=== PATIENT | male | born 1995 ===

== ENCOUNTER 2016-12-14 08:56 | Emergency (ER) | payer OTHER, BC ==
[~2016-12-14] VITALS: Ht 172.7 cm; Wt 73.3 kg
[2016-12-14 09:02] VITALS: TEMP 36.7; Ht 172.7 cm; Wt 73.3 kg
[2016-12-14] MEDS ORDERED: LIDOCAINE/EPINEPH/TETRACAINE 1 EA SYR EXT STA (09:25)
[2016-12-14] MEDS ORDERED: LIDOCAINE/EPINEPHRINE 1% 20 ML VIAL INFIL ONE (09:30)
[2016-12-14] MEDS ORDERED: AMOX875T PO (09:35)
--- NOTE | 2016-12-14 09:36 | EMERGENCY ROOM VISIT NOTE ---
ED Visit Note First contact with patient: 09:16 CHIEF COMPLAINT: Multiple facial lacerations from dog bites HISTORY OF PRESENT ILLNESS: This 21-year-old male patient presents emergency department via EMS, complaining of multiple lacerations to the face and upper lip. The patient states his roommate's dog had a medicine bottle which she was chewing and playing with, so he reached down to attempt to remove the medicine bottle from the dogs mouth. The dog became agitated and bit the patient's face. The dog is up-to-date on all vaccinations, including rabies. The dog does not have a biting history. There was no loss of consciousness, vomiting, or unusual behavior afterwards. Denies neck pain. No headache, nausea, or blurred vision. There is minimal active bleeding. The patient rates the pain as burning and 5/10. The patient's tetanus shot is up to date. REVIEW OF SYSTEMS: A 6 system review of systems was completed with positives and pertinent negatives listed in the HPI. ALLERGIES: None MEDICATIONS: None PMH: None SOCIAL HISTORY: The patient is a [employer] student. He lives locally with his roommate. The patient denies drug, alcohol, tobacco use. PHYSICAL EXAM: Vital Signs: Reviewed Nurse's notes, vital signs stable. GENERAL : This is a 21-year-old male, in no acute distress, well-developed, well- nourished. NEURO: The patient is alert and oriented to person place and time. No focal neurological defects. EYES: Pupils are round, equal, and react to light. EOMI. EARS: No hemotympanum. NECK: Supple. No cervical spine tenderness. FACE: No facial bone tenderness or mandibular tenderness. The mouth can open fully. The teeth are well aligned. No loose or chipped teeth. SKIN: There are 2 small, approximately 0.5 cm long lacerations of the right side of the upper lip. The lacerations are not through the vermilion border. They are gaping open without traction. The wounds are minimally bleeding. There is no foreign material in the wounds. There is a 3 cm laceration on the right lower cheek. The edges gape apart without traction. There is minimal active bleeding and no foreign material in the wound. There are no deep structures present. There is another smaller, 1 cm long laceration in the center of the chin. The edges gape apart with traction. The edges are irregular from the dog's teeth. There is minimal active bleeding and no foreign material in the wound. There are no deep structures present. Capillary refill less than two seconds. Normal sensation to light and sharp touch. EMERGENCY DEPARTMENT COURSE: I examined the patient. Verbal consent was obtained to perform the procedure. LET gel was applied to the lesions on the chin and cheek. This was allowed to sit for approximately 45 minutes as the lip lacerations were repaired. Using sterile technique the wounds on the lip were cleansed with Betadine. The area was sterilely draped. 1 ml of 1% buffered lidocaine with epinephrine was used to anesthetize each of the lip lacerations. Once the patient was anesthetized, the wound was copiously irrigated under pressure with sterile saline. The wound was explored and was as described above. The laceration in the corner of the lip was repaired using 4 simple interrupted 5-0 Vicryl sutures with the wound edges being well approximated. The laceration closer to the middle of the upper lip was repaired using 3 simple interrupted 5-0 Vicryl sutures with the wound edges being well approximated. At this time, the let gel was removed from the cheek laceration. This laceration was cleaned with Betadine and sterilely draped. The wound was copiously irrigated under pressure with sterile saline. The wound was explored and was as described above. The patient did admit to having some sensation in the wound on exploration, so 0.5 mL of 1% buffered lidocaine with epinephrine was used to anesthetize this laceration. 2 subcuticular 5-0 Vicryl sutures were used to approximate the wound edges, as the wound was significantly gaping apart. Ultimately, the laceration was repaired using 11 simple interrupted 6-0 nylon sutures with the wound edges being well approximated. The laceration in the center of the chin was then sterilely draped and copiously irrigated under pressure with sterile saline. The wound was explored and was as described above. This wound was repaired using 6 simple interrupted 6-0 nylon sutures with the wound edges being well approximated, however the wound edges were irregular as previously documented. The patient tolerated the procedure well. Hemostasis was achieved. The area was cleaned with sterile saline and dressed with bacitracin ointment. The patient was discharged home in good condition. [facility] dog bite paperwork was filled out. Throughout the course of his care, the patient's blood pressure was very slightly elevated, however I do feel that this is situational. I did consult with [facility] regarding the patient's narcotic history. There was no patient found in the database. DIFFERENTIAL DIAGNOSIS: Laceration, contusion, fracture, need for rabies prophylaxis, infection, and others DIAGNOSIS: Multiple facial lacerations, dog bite DISCHARGE INSTRUCTIONS: You have received 24 total sutures on your face (and 2 subcuticular sutures under the skin on your chin). The 7 sutures on your lip are dissolvable. The sutures on your chin are NOT dissolvable and WILL need to be removed by a health care provider in 4-5 days. You can return to the Emergency Department or contact your Primary Care Provider (or [facility] to have the sutures removed. Proper wound care is essential for adequate wound healing and infection prevention. You can shower and clean the wound with soap and water. Do not scour over the wound, pat dry with a towel. Do not submerse the wound (i.e. bathe or dish wash) until the sutures have been removed. You can use an antibiotic ointment with a dressing over the wound for the next 3-4 days. After this time you may leave the wound dry and open to the air. If crust develops over the wound you can use a Q-tip to apply a 1:1 peroxide:water solution to clean the wound. Look for signs of infection of the wound including: increased pain, swelling, foul discharge, streaking, or increased temperature. If any of these are noticed you should return to the Emergency Department for further assessment and treatment. As with any laceration you may have received nerve damage to the surrounding tissues. This damage may or may not be permanent. You should keep the area covered with sunscreen for the first 6 months to 1 year when at risk for exposure to help minimize scarring. You can also use scar reducing creams or Vitamin E oil to help minimize scarring. For pain control, you can use the following zgis-iun-cdeeayi medicines (if >12 yo): Ibuprofen(Motrin, Advil) may be used for fever or pain. Use 600mg every six hours as needed. Take with food. Avoid using more than 2400mg in a 24 hour period. Do not use 2400mg per day for more than three consecutive days without physician direction. Prolonged inappropriate use can lead to stomach upset or ulcers. (AND/OR) Acetaminophen(Tylenol) may be used for fever or pain. Use 1000mg every six hours as needed. Avoid using more than 3000mg in a 24 hour period. You have been prescribed Tramadol one tab every 8 hours as needed for pain. This is a narcotic pain medicine and is for breakthrough pain not controlled by Tylenol/Motrin. You should not drink alcohol or drive while on this medicine. Return to the emergency department if your symptoms worsen despite treatment course outlined above. Current/Historical Medications Scheduled Amoxicillin & Pot Clavulanate (Augmentin 875-125 mg), 1 TAB PO BID Scheduled PRN Tramadol (Ultram), 1 TAB PO TID PRN for Pain Allergies Coded Allergies: No Known Allergies (Unverified , 12/14/16) Vital Signs Date Time Temp Pulse Resp B/P (MAP) Pulse Ox O2 Delivery O2 Flow Rate FiO2 12/14/16 09:02 36.7 90 18 149/93 99 Room Air Medications Administered Medications (Trade) Dose Ordered Sig/Leah Route Start Time Stop Time Status Last Admin Dose Admin Tetracaine/ Epinephrine/ Lidocaine (L.e.t. Gel 4%/ 1:100/0.5%) 1 ea UD STAT EXT 12/14/16 09:25 12/14/16 09:29 DC 12/14/16 09:55 1 EA Departure Information Impression Primary Impression: Dog bite Additional Impressions: Facial laceration Laceration of lip Dispostion Home / Self-Care Condition GOOD Prescriptions Tramadol (Ultram) 50 Mg Tab 1 TAB PO TID Y for Pain, #9 TAB Prov: Justyna Farias PA-C 12/14/16 Amoxicillin & Pot Clavulanate (Augmentin 875-125 mg) 1 Tab Tab 1 TAB PO BID for 10 Days, #20 TAB Prov: Justyna Farias PA-C 12/14/16 Patient Instructions ED Bite Dog, ED Laceration Chin Sutr Tape, ED Laceration Lip Mouth , [facility] Additional Instructions You have received 24 total sutures on your face (and 2 subcuticular sutures under the skin on your chin). The 7 sutures on your lip are dissolvable. The sutures on your chin are NOT dissolvable and WILL need to be removed by a health care provider in 4-5 days. You can return to the Emergency Department or contact your Primary Care Provider (or S) to have the sutures removed. Proper wound care is essential for adequate wound healing and infection prevention. You can shower and clean the wound with soap and water. Do not scour over the wound, pat dry with a towel. Do not submerse the wound (i.e. bathe or dish wash) until the sutures have been removed. You can use an antibiotic ointment with a dressing over the wound for the next 3-4 days. After this time you may leave the wound dry and open to the air. If crust develops over the wound you can use a Q-tip to apply a 1:1 peroxide:water solution to clean the wound. Look for signs of infection of the wound including: increased pain, swelling, foul discharge, streaking, or increased temperature. If any of these are noticed you should return to the Emergency Department for further assessment and treatment. As with any laceration you may have received nerve damage to the surrounding tissues. This damage may or may not be permanent. You should keep the area covered with sunscreen for the first 6 months to 1 year when at risk for exposure to help minimize scarring. You can also use scar reducing creams or Vitamin E oil to help minimize scarring. For pain control, you can use the following arnp-iqc-rhizzip medicines (if >12 yo): Ibuprofen(Motrin, Advil) may be used for fever or pain. Use 600mg every six hours as needed. Take with food. Avoid using more than 2400mg in a 24 hour period. Do not use 2400mg per day for more than three consecutive days without physician direction. Prolonged inappropriate use can lead to stomach upset or ulcers. (AND/OR) Acetaminophen(Tylenol) may be used for fever or pain. Use 1000mg every six hours as needed. Avoid using more than 3000mg in a 24 hour period. You have been prescribed Tramadol one tab every 8 hours as needed for pain. This is a narcotic pain medicine and is for breakthrough pain not controlled by Tylenol/Motrin. You should not drink alcohol or drive while on this medicine. Return to the emergency department if your symptoms worsen despite treatment course outlined above. Problem Qualifiers Primary Impression: Dog bite Encounter type: initial encounter Qualified Codes: W54.0XXA - Bitten by dog , initial encounter Additional Impressions: Facial laceration Encounter type: initial encounter Qualified Codes: S01.81XA - Laceration without foreign body of other part of head, initial encounter Laceration of lip Encounter type: initial encounter Qualified Codes: S01.511A - Laceration without foreign body of lip, initial encounter
[2016-12-14] MEDS ORDERED: TRAM-10 PO (11:31)
[2016-12-14 11:38] VITALS: BP 132/97; PULSE 88; O2SAT 97
== END 2016-12-14 11:42 | disposition home or self-care (01) ==
LOC: C.EDA 08:59
DX: S01.85XA Open bite of other part of head, initial encounter (principal); S01.551A Open bite of lip, initial encounter; W54.0XXA Bitten by dog, initial encounter; Y92.009 Unspecified place in unspecified non-institutional (private) residence as the place of occurrence of the external cause

== ENCOUNTER 2016-12-18 11:21 | Emergency (ER) | payer OTHER, BC ==
[~2016-12-18] VITALS: Ht 172.7 cm; Wt 68.2 kg
[~2016-12-18 11:21] MED LIST: AMOX875T PO; TRAM-10 PO
[2016-12-18 11:26] VITALS: BP 147/81; TEMP 37; Ht 172.7 cm; Wt 68.2 kg
--- NOTE | 2016-12-18 11:55 | EMERGENCY ROOM VISIT NOTE ---
ED Visit Note First contact with patient: 11:32 CHIEF COMPLAINT: Suture removal HPI: This patient returns to the ED today for removal of sutures in his face/ lip that were placed 4 days ago. There has been no swelling, redness, or drainage from the wound. The patient feels like the lacerations are healing well. The patient has been tolerating antibiotics well. REVIEW OF SYSTEMS: A complete 6 point review of systems was reviewed with the patient with pertinent positives and negatives as per history of present illness. All else were negative. PMH: None MEDS: Augmentin. I did personally review the patient's medication with him at bedside. ALLERGIES: None SOCIAL HISTORY: Patient lives at home. PHYSICAL EXAM: Vital Signs: Reviewed Nurse's notes. Vital signs stable. There are several sutured wounds on the face and lip with no signs of infection. There is no erythema, swelling, or tenderness. The wounds are closing, and there is no dehiscence. EMERGENCY DEPARTMENT COURSE: I reviewed previous ED notes. The sutures were removed without any difficulty and there was no separation of the wound edges. DIAGNOSIS: Healing laceration and suture removal DISCHARGE INSTRUCTIONS AND TREATMENT: You were seen today in the emergency department for removal of the door sutures. These were removed without complication. Proper wound care is essential for adequate wound healing and infection prevention. You can shower and clean the wound with soap and water. Do not scour over the wound, pat dry with a towel. Do not submerse the wound (i.e. bathe or dish wash) until the wound has fully healed. You can use an antibiotic ointment with a dressing over the wound for the next 3-4 days. After this time you may leave the wound dry and open to the air. Use vitamin E oil as the wound heals to reduce scarring. Please see previous discharge instructions for further wound care. Return to the emergency department for increased redness, swelling, drainage, pus like drainage, fever, chills, nausea, vomiting, or other concerning symptoms. Current/Historical Medications Scheduled Amoxicillin & Pot Clavulanate (Augmentin 875-125 mg), 1 TAB PO BID Scheduled PRN Tramadol (Ultram), 1 TAB PO TID PRN for Pain Allergies Coded Allergies: No Known Allergies (Unverified , 12/18/16) Vital Signs Date Time Temp Pulse Resp B/P (MAP) Pulse Ox O2 Delivery O2 Flow Rate FiO2 8/27/17 11:59 78 18 99 12/18/16 11:26 37.0 75 18 147/81 99 Room Air Departure Information Impression Primary Impression: Encounter for removal of sutures Dispostion Home / Self-Care Condition GOOD Referrals No Doctor, Assigned (PCP) Patient Instructions ED Wound Care, [facility] Additional Instructions You were seen today in the emergency department for removal of the door sutures. These were removed without complication. Proper wound care is essential for adequate wound healing and infection prevention. You can shower and clean the wound with soap and water. Do not scour over the wound, pat dry with a towel. Do not submerse the wound (i.e. bathe or dish wash) until the wound has fully healed. You can use an antibiotic ointment with a dressing over the wound for the next 3-4 days. After this time you may leave the wound dry and open to the air. Use vitamin E oil as the wound heals to reduce scarring. Please see previous discharge instructions for further wound care. Return to the emergency department for increased redness, swelling, drainage, pus like drainage, fever, chills, nausea, vomiting, or other concerning symptoms.
[2016-12-18 11:59] VITALS: PULSE 78; O2SAT 99
== END 2016-12-18 12:00 | disposition home or self-care (01) ==
LOC: C.EDB 11:22 → C.EDD 12:00
DX: S01.81XD Laceration without foreign body of other part of head, subsequent encounter (principal); X58.XXXD Exposure to other specified factors, subsequent encounter